=== PATIENT | female | born 1980 | race Hispanic/Latino ===

== ENCOUNTER 2019-01-30 09:35 | Emergency (ER) | payer BC, SELFPAY ==
[2019-01-30 10:20] LABS: BHCG - Serum Negative (NEGATIVE); Pregs Control Background? CLEAR/WHITE (CLR/WHITE); Pregs Control Bar Appear? YES (CONTROL BAR)
[2019-01-30 10:35] LABS: #Basophils 0.1 thou/uL (0.0-0.2); #Eosinphils 0.2 thou/uL (0.0-0.7); #Lymphocytes 3.5 thou/uL (1.20-3.40); #Monocytes 0.6 thou/uL (0.11-0.59); #Neutrophils 5.1 thou/uL (1.40-6.50); %Basophils 0.8 % (0.0-1.0); %Eosinophils 1.7 % (0.0-10.0); %Lymphocytes 36.9 % (21.0-51.0); %Monocytes 6.6 % (0.0-10.0); Hemoglobin 11.1 g/dL (12.0-16.0); Mean Corpuscular HGB CONC 31.8 g/dL (32.0-36.0); Mean Corpuscular Hemoglobin 23.5 pg (27.0-31.0); Mean Corpuscular Volume 73.9 fL (78.0-98.0); Mean Platelet Volume 7.2 fL (7.4-10.4); Platelet Count 398 thou/uL (130-400); Red Blood Cell (RBC) Count 4.75 mill/uL (4.20-5.40); White Blood Cell (WBC) Count 9.5 thou/uL (4.8-10.8)
[2019-01-30] MEDS ORDERED: Morphine 4 MG/ML VIAL ONE (10:37)
[2019-01-30] MEDS ORDERED: Ketorolac Tromethamine 30 MG/ML VIAL ONE (10:38)
[2019-01-30 10:44] LABS: ALT (SGPT) 17 U/L (8-55); AST (SGOT) 18 U/L (5-34); Albumin 4.3 g/dL (3.5-5.0); Alkaline Phosphatase 61 U/L (40-150); Anion Gap 13 mmol/L (10-20); BUN (Urea Nitrogen) 12 mg/dL (7.0-18.7); Bilirubin, Total 0.3 mg/dL (0.2-1.2); Calc. Creatinine Clearance 0 mL/min (70-130); Calcium 9.4 mg/dL (7.8-10.44); Carbon Dioxide 22 mmol/L (22-29); Chloride 105 mmol/L (98-107); Estimated GFR-MDRD Greater than 90; Globulin 3.2 g/dL (2.4-3.5); Glucose 97 mg/dL (70-105); Potassium 4.2 mmol/L (3.5-5.1); Protein, Total 7.5 g/dL (6.0-8.3); Sodium 136 mmol/L (136-145)
[2019-01-30 11:03] LABS: Hypochromia SLIGHT = 6-15 cells (100X) (0-5/hpf); MDiff Complete? YES; Microcytosis SLIGHT = 6-15 cells (100X) (0-5/hpf); Polychromasia SLIGHT = 2-3 cells (100X) (0-2/hpf)
--- NOTE | 2019-01-30 11:15 | ULT ---
US Pelvic Transvag HISTORY: Left lower quadrant pain COMPARISON: None. FINDINGS: Real-time imaging of the pelvis was obtained both transabdominally as well as within the en dovaginal probe. This shows a uterus that measures 4.9 x 6.0 x 11.7 cm. No fibroids are identified. The endometrium is in the 6 mm range. Trace free fluid is noted. Left ovary is well visualized and normal in appearance. The right ovary is never seen. Doppler evaluation with spectral analysis: Normal flow shown to the left ovary. IMPRESSION: 1. Nonvisualization of the right ovary. 2. No uterine fibroids identified. 3. Normal left ovary.
[2019-01-30 11:19] LABS: Bilirubin Negative (Negative); Blood, Urine Negative (Negative); Clarity CLEAR (Clear); Glucose, Urine (Dipstick) Negative (Negative); Leukocyte Negative (Negative); Nitrite Negative (Negative); Protein, Urine (Dipstick) Negative (Neg-Trace); Specific Gravity, Urine 1.005 (1.002-1.036); Urobilinogen 0.2 mg/dL (0.2-1.0); pH, Urine 5.5 (5.0-9.0)
--- NOTE | 2019-01-30 11:36 | CT ---
CT Stone Protocol HISTORY: Left lower quadrant pain COMPARISON: Pelvic ultrasound done today FINDINGS: The lung bases are clear. The liver, spleen, pancreas and gallbladder regions appear unrema rkable given the limitations of a noncontrast study. Right and left adrenal glands are normal in appearance. There is a 4 to 5 mm lower pole left renal ca lculus present. No ureteral calculus seen. No significant periaortic or mesenteric adenopathy. CT of pelvis performed with contrast enhancement: There is an area of slight increased attenuation in volving the left ovary, this may represent a collapsed cyst or follicle. There is no significant free fluid demonstrated right adnexal region is normal. The appendix is difficult to definitively mart ntify but no inflammatory change. IMPRESSION: Focus of indistinct increased attenuation within the left ovary, this would probably aislinn jc a collapsed follicle. No evidence of any significant free fluid associated with this. Nonobstructing 4 to 5 mm lower pole left renal calculus
== END 2019-01-30 12:23 | disposition home or self-care (01) ==
LOC: ERS 09:35
DX: R10.2 Pelvic and perineal pain (principal); I10 Essential (primary) hypertension; F41.9 Anxiety disorder, unspecified; Z79.899 Other long term (current) drug therapy
CPT/HCPCS: 36415; 74176; 76856; 80053; 81003; 84703; 85025; 96374; 96375; J1885; J2270

== ENCOUNTER 2019-02-08 15:09 | Outpatient (CLI) | payer BC ==
--- NOTE | 2019-02-08 16:02 | ULT ---
TRANSABDOMINAL AND TRANSVAGINAL PELVIC ULTRASOUND WITH MONSON SCALE, COLOR FLOW AND SPECTRAL DOPPLER IM AGIN02/08/19 HISTORY: Ruptured ovarian cyst. FINDINGS: The uterus measures 9 x 6.3 x 5.3 cm without focal mass or endometrial fluid. Endometrium measures 11 mm in thickness. The right ovary is not visualized. The left ovary measures 3.3 x 2.3 x 3.4 cm and demonstrates normal flow. No adnexal mass or free fluid in the cul-de-sac is seen. IMPRESSION: 1. Nonvisualization of the right ovary. 2. Endometrial thickness is 11 mm. POS: [facility]
== END 2019-02-08 15:10 | disposition home or self-care (01) ==
LOC: ULT 15:09
PROVIDERS: ATTEND Advanced Practice Midwife
DX: N83.00 Follicular cyst of ovary, unspecified side (principal)
CPT/HCPCS: 76856

== ENCOUNTER 2019-04-04 18:55 | Emergency (ER) | payer BC ==
[~2019-04-04 18:55] MED LIST: ISOVUE-370 76%-LOCM 1 ML ONE
[2019-04-04 19:42] LABS: #Basophils 0.1 thou/uL (0.0-0.2); #Eosinphils 0.1 thou/uL (0.0-0.7); #Lymphocytes 2.6 thou/uL (1.20-3.40); #Monocytes 0.7 thou/uL (0.11-0.59); #Neutrophils 4.4 thou/uL (1.40-6.50); %Basophils 1.2 % (0.0-1.0); %Eosinophils 0.7 % (0.0-10.0); %Lymphocytes 32.9 % (21.0-51.0); %Monocytes 9.3 % (0.0-10.0); %Neutrophils 55.9 % (42.0-75.0); Hemoglobin 11.6 g/dL (12.0-16.0); Mean Corpuscular HGB CONC 31.3 g/dL (32.0-36.0); Mean Corpuscular Hemoglobin 22.6 pg (27.0-31.0); Mean Corpuscular Volume 72.4 fL (78.0-98.0); Mean Platelet Volume 7.7 fL (7.4-10.4); Platelet Count 356 thou/uL (130-400); RBC Distribution Width 14.7 % (11.5-14.5); Red Blood Cell (RBC) Count 5.11 mill/uL (4.20-5.40); White Blood Cell (WBC) Count 7.8 thou/uL (4.8-10.8)
[2019-04-04 19:54] LABS: Bilirubin Negative (Negative); Blood, Urine Negative (Negative); Clarity Clear (Clear); Glucose, Urine (Dipstick) Negative (Negative); Leukocyte Negative (Negative); Nitrite Negative (Negative); Protein, Urine (Dipstick) Negative (Neg-Trace); Urobilinogen 0.2 mg/dL (Less than 2)
[2019-04-04 19:57] LABS: ALT (SGPT) 23 U/L (8-55); AST (SGOT) 21 U/L (5-34); Albumin 4.5 g/dL (3.5-5.0); Alkaline Phosphatase 71 U/L (40-150); Anion Gap 13 mmol/L (10-20); BUN (Urea Nitrogen) 9 mg/dL (7.0-18.7); Bilirubin, Total 0.3 mg/dL (0.2-1.2); Calc. Creatinine Clearance 0 mL/min (70-130); Calcium 9.7 mg/dL (7.8-10.44); Carbon Dioxide 22 mmol/L (22-29); Chloride 104 mmol/L (98-107); Estimated GFR-MDRD Greater than 90; Globulin 3.5 g/dL (2.4-3.5); Glucose 79 mg/dL (70-105); Lipase 51 U/L (8-78); Sodium 135 mmol/L (136-145)
[2019-04-04 20:04] LABS: MDiff Complete? YES; Microcytosis SLIGHT = 6-15 cells (100X) (0-5/hpf)
[2019-04-04 22:42] LABS: BHCG - Serum Negative (NEGATIVE); Pregs Control Background? CLEAR/WHITE (CLR/WHITE); Pregs Control Bar Appear? YES (CONTROL BAR)
[2019-04-04] MEDS ORDERED: Morphine 4 MG/ML VIAL ONE ×2 (22:47→23:25)
[2019-04-04] MEDS ORDERED: Ondansetron PF 4 MG/2 ML Vial ONE (22:47)
--- NOTE | 2019-04-04 23:17 | ULT ---
TRANSABDOMINAL PELVIC ULTRASOUND WITH MONSON SCALE, COLOR FLOW AND SPECTRAL DOPPLER IMAGIN04/04/19 HISTORY: Pelvic pain. Irregular periods. FINDINGS: The uterus measures 11.5 x 4.3 x 6.4 cm without focal mass or endometrial fluid. The endometrium prasanna ures 12 mm in thickness. The right ovary measures 3.3 x 4 x 2 cm and the left ovary measures 2.7 x 1.3 x 2.2 cm. Flow is dem onstrated to both ovaries. There is a 1.8 cm cyst in the right ovary. No free fluid is seen. IMPRESSION: No significant abnormalities are identified. POS: [facility]
--- NOTE | 2019-04-04 23:34 | CT ---
CT ABDOMEN AND PELVIS WITH IV CONTRAST: 04/04/19 HISTORY: Suprapubic pain, nausea, and clear vaginal discharge, chills. FINDINGS: The lung bases are clear. The liver, spleen, pancreas, adrenal glands and right kidney are normal. No calcified gallstones are seen. There is a 3 mm nonobstructing calculus in the inferior pole of the l eft kidney. No calculi is seen in the right kidney, either ureter or the urinary bladder. No hydroure teronephrosis noted on either side. A normal appearing appendix is seen. The uterus and ovaries are present with a 2 cm right ovarian cys t. No acute osseous abnormalities are seen. IMPRESSION: Nonobstructing 3 mm left renal calculus. POS: [facility]
== END 2019-04-05 01:15 | disposition home or self-care (01) ==
LOC: ERS 18:55
DX: N83.201 Unspecified ovarian cyst, right side (principal); M79.651 Pain in right thigh; M79.652 Pain in left thigh; E78.5 Hyperlipidemia, unspecified; I10 Essential (primary) hypertension; E03.9 Hypothyroidism, unspecified; Z79.899 Other long term (current) drug therapy
CPT/HCPCS: 36415; 74177; 76856; 80053; 81003; 82550; 83690; 84703; 85025; 93976; 96361; 96374; 96375; J2270; J2405

== ENCOUNTER 2021-01-22 10:19 | Emergency (ER) | payer OTHER, SELFPAY ==
[2021-01-22] MEDS ORDERED: Ketorolac Tromethamine 30 MG/ML VIAL ONE (12:17)
[2021-01-22] MEDS ORDERED: Hydrocodone-Acetamin 15 ML UDCUP ONE (12:19)
[2021-01-22] MEDS ORDERED: Albuterol 200 PUFF (6.7GM INHALER) ONE (13:03)
== END 2021-01-22 14:12 | disposition home or self-care (01) ==
LOC: ERS 10:19
DX: U07.1 COVID-19 (principal); E78.5 Hyperlipidemia, unspecified; I10 Essential (primary) hypertension; E03.9 Hypothyroidism, unspecified; Z79.899 Other long term (current) drug therapy
CPT/HCPCS: 94640; 96374; J1885